=== PATIENT | female | born 1955 | race African-American/Black ===

== ENCOUNTER 2017-12-31 10:24 | Emergency (ER) | payer OTHER ==
[2017-12-31 10:33] VITALS: BMI 29.0
[2017-12-31] MEDS ORDERED: SODIUM CHLORIDE 0.9% 1000 ML INFUS.BAG IV ONE (11:17)
[2017-12-31] MEDS ORDERED: METOCLOPRAMIDE HCL INJECTION 10 MG/2 ML VIAL IVPUSH ONE (11:17)
[2017-12-31] MEDS ORDERED: METOCLOPRAMIDE HCL INJECTION 10 MG/2 ML VIAL ONE (11:34)
--- NOTE | 2017-12-31 11:48 | PDOC ---
History of Present Illness - General Chief Complaint: Headache Stated Complaint: HEADACHE History Source: Patient Exam Limitations: No Limitations - History of Present Illness Initial Comments: 12/31/17 11:45 62 yo F with h/o htn here with co headache. has had for 3 weeks. worse in am. no mod factors. has been taking tylenol no relief. no f/c no n/v. no focal weakness or numbness. no trauma. no vision changes. recently saw and ENT to investigate if it was her sinues. they recommend a nasal spray for her. also has apt for nuerology scheduled. no h/o similar edge, no h/o migraines. no f/c Past History - Past Medical History Allergies/Adverse Reactions: Allergies Allergy/AdvReac Type Severity Reaction Status Date / Time No Known Allergies Allergy Verified 03/31/15 16:36 Home Medications: Ambulatory Orders Amitriptyline HCl [Elavil -] 25 mg PO DAILY 03/07/12 Atenolol/Chlorthalidone [Tenoretic 50/25 Tablet] 1 each PO DAILY 03/07/12 Ibuprofen [Motrin -] 600 mg PO TID PRN #90 tablet MDD 3 12/31/17 Anemia: No Asthma: No Cancer: No Cardiac Disorders: No CVA: No COPD: No CHF: No Dementia: No Diabetes: No GI Disorders: Yes (GERD, ACID REFLUX) Disorders: No HTN: Yes Hypercholesterolemia: No Liver Disease: No Seizures: No Thyroid Disease: No - Surgical History Abdominal Surgery: No Appendectomy: No Cardiac Surgery: No Cholecystectomy: No Lung Surgery: No Neurologic Surgery: No Orthopedic Surgery: No - Suicide/Smoking/Psychosocial Hx Smoking Status: No Smoking History: Former smoker Have you smoked in the past 12 months: No Number of Cigarettes Smoked Daily: 0 If you are a former smoker, when did you quit?: 25 yrs ago Information on smoking cessation initiated: No Hx Alcohol Use: No Drug/Substance Use Hx: No Substance Use Type: None Hx Substance Use Treatment: No Review of Systems - Review of Systems Constitutional: No: Chills, Fever, Weakness HEENTM: No: Eye Pain Respiratory: No: Cough, Orthopnea Cardiac (ROS): No: Chest Pain, Edema Musculoskeletal: No: Back Pain, Gout, Joint Pain Neurological: Yes: Headache. No: Numbness, Paresthesia All Other Systems: Reviewed and Negative *Physical Exam - Vital Signs Last Vital Signs Temp Pulse Resp BP Pulse Ox 98.6 F 69 16 142/81 97 12/31/17 10:30 12/31/17 10:30 12/31/17 10:30 12/31/17 10:30 12/31/17 10:30 - Physical Exam Comments: 12/31/17 11:47 awake alert lungs clear bilaterally heart rrr no mrg abd soft nt nd. ext wwp no edema no calf tenderness. skin warm and dry. nuero CN intact, speech clear. 5/5 all four ext. ED Treatment Course - LABORATORY CBC & Chemistry Diagram: 12/31/17 12:00 12/31/17 12:00 Medical Decision Making - Medical Decision Making 12/31/17 11:48 differential : anemia, mass, tension or sinus headache. dehydration, electrolyte abnormality. plan ct head labs ekg. ivf pain control. 12/31/17 14:34 pt feeling better. will dc home ct head negative. labs unremarkable. dc home. has appt with nuerology scheduled this week . *DC/Admit/Observation/Transfer Diagnosis at time of Disposition: Headache - Discharge Dispostion Disposition: HOME Condition at time of disposition: Improved Decision to Admit order: No - Prescriptions Prescriptions: Ibuprofen [Motrin -] 600 mg PO TID PRN #90 tablet MDD 3 PRN Reason: Pain - Referrals - Patient Instructions Printed Discharge Instructions: Tension Headache Additional Instructions: you can take ibuprofen 600 mg every 8 hrs as needed for pain. follow up with your neurologist as scheduled next week. return for weakness, numbness, vomiting or any concerns. your ct head was negative for any changes and your labs are unremarkable. - Post Discharge Activity
[2017-12-31 12:08] LABS: BASO % 1.1 % (0-2.0); EOS % 1.9 % (0-4.5); HEMATOCRIT 40.5 % (32.4-45.2); HEMOGLOBIN 14.1 GM/dL (10.7-15.3); LYMPH % 38.7 % (8-40); MCHC 34.8 g/dl (32.0-36.0); MEAN CELL VOLUME 92.1 fl (80-96); MEAN PLT VOLUME 8.4 fl (7.5-11.1); MONO % 8.5 % (3.8-10.2); NEUT % 49.8 % (42.8-82.8); PLATELET COUNT 231 K/MM3 (134-434); RDW 12.1 % (11.6-15.6); WHITE BLOOD COUNT 5.4 K/mm3 (4.0-10.0)
[2017-12-31 12:25] LABS: ALBUMIN 3.7 g/dl (3.4-5.0); ALK PHOS 76 U/L (45-117); ANION GAP 6 MMOL/L (8-16); BILIRUBIN,TOTAL 0.4 mg/dL (0.2-1); BLOOD UREA NITROGEN 15 mg/dL (7-18); CALCIUM 9.1 mg/dL (8.5-10.1); CHLORIDE 101 mmol/L (98-107); CO2 31 mmol/L (21-32); CREATININE 0.7 mg/dL (0.55-1.3); GLUCOSE,RANDOM 96 mg/dL (74-106); POTASSIUM 3.4 mmol/L (3.5-5.1); SGOT/AST 68 U/L (15-37); SGPT/ALT 96 U/L (13-61); SODIUM 139 mmol/L (136-145)
[2017-12-31] MEDS ORDERED: KETOROLAC TROMETHAMINE 15 MG/ML VIAL IVPUSH ONE (13:10)
[2017-12-31] MEDS ORDERED: KETOROLAC TROMETHAMINE 15 MG/ML VIAL ONE (13:28)
[2017-12-31 14:35] VITALS: BP 134/84; PULSE 64; TEMP 97.6
== END 2017-12-31 15:37 | disposition home or self-care (01) ==
LOC: JER 10:24
PROC: 3E0333Z Introduction of Anti-inflammatory into Peripheral Vein, Percutaneous Approach (ICD-10-PCS; principal; 2017-12-31)
PROC: 3E033GC Introduction of Other Therapeutic Substance into Peripheral Vein, Percutaneous Approach (ICD-10-PCS; 2017-12-31)
DX: R51 Headache (principal); I10 Essential (primary) hypertension; K21.9 Gastro-esophageal reflux disease without esophagitis
CPT/HCPCS: 36415; 70450-TC; 80053; 85025; 99282-25; J7030